=== PATIENT | male | born 1995 | race Caucasian/White ===

== ENCOUNTER 2020-02-02 09:08 | Outpatient (NON) | payer BC, SELFPAY ==
[2020-02-03 00:44] LABS: SARS-CoV-2 RNA PCR Negative
== END 2020-02-02 09:09 ==
PROVIDERS: PCP Nurse Practitioner Family; Visit Provider Nurse Practitioner Family
DX: Z20.828 Contact with and (suspected) exposure to other viral communicable diseases (principal)
CPT/HCPCS: 87635; C9803; U0003